=== PATIENT | female | born 1985 | race Caucasian/White ===

== ENCOUNTER 2020-03-30 23:30 | Emergency (ER) | payer OTHER, SELFPAY ==
[2020-03-30 23:45] VITALS: BP 135/82; PULSE 116; RESP 16; TEMP 36.4; O2SAT 99; BMI 26.5
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
[2020-03-31 00:28] LABS: MANUAL DIFF FLAG NO
[2020-03-31 00:31] LABS: Basophils Absolute Auto 0.1 X10*3/uL (0.0-0.2); Basophils Percent Auto 0.6 % (0-2); Eosinophils Absolute Auto 1.1 X10*3/uL (0.0-0.4); Eosinophils Percent Auto 7.9 % (0-4); Hematocrit 39.6 % (37-47); Hemoglobin 13.2 g/dl (12.0-16.0); Imm Gran Abs Auto 0.07 X10*3/uL (0.00-0.03); Imm Gran Pct Auto 0.5 % (0.0-0.4); Lymphocytes Absolute Auto 1.8 X10*3/uL (1.2-4.9); Lymphocytes Percent Auto 13.2 % (20-40); Mean Corpuscular HGB Conc 33.3 g/dl (31.0-35.0); Mean Corpuscular Volume 95.9 fL (80-98); Monocytes Absolute Auto 1.2 X10*3/uL (0.1-1.2); Monocytes Percent Auto 8.6 % (2-11); Neutrophils Absolute Auto 9.3 X10*3/uL (2.0-8.3); Neutrophils Percent Auto 69.2 % (45-73); Platelet Count 391 X10*3/uL (160-400); Red Blood Count 4.13 X10*6/uL (4.20-5.50); White Blood Count 13.5 X10*3/uL (4.8-10.8)
[2020-03-31 00:53] LABS: Ethanol < 10 mg/dL
[2020-03-31 00:54] LABS: Alanine Aminotransferase 11 U/L (0-31); Albumin Level 4.1 g/dL (3.5-5.0); Alkaline Phosphatase 79 U/L (39-117); Anion Gap 14 (12-20); Aspartate Amino Transferase 15 U/L (5-31); Bilirubin Total 0.6 mg/dL (0.0-1.0); Blood Urea Nitrogen 12 mg/dL (9-16); Calcium 8.8 mg/dL (8.4-10.2); Carbon Dioxide 26 mmol/L (22-29); Chloride 104 mmol/L (96-108); Estimated Glomerular Filt Rate > 60; Glucose Random 123 mg/dL (60-115); Potassium 3.6 mmol/L (3.3-5.1); Sodium 140 mmol/L (135-145); Total Protein 7.1 g/dL (6.5-8.0)
--- NOTE | 2020-03-31 01:17 | PC.NURSE ---
[facility] faxed/called/spoke with [facility]/confirmed receipt of referral.
--- NOTE | 2020-03-31 01:23 | PC.NURSE ---
Medication reconciliation completed, provider notified, pending MAR update.
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
[2020-03-31] MEDS: clonazePAM 1 MG TABLET PO (01:36)
--- NOTE | 2020-03-31 01:50 | PC.NURSE ---
Patient compliant with her scheduled medication, no distress reported, will continue to monitor.
[2020-03-31 03:40] LABS: COVID-19 Test Negative (Negative)
--- NOTE | 2020-03-31 03:43 | PC.NURSE ---
POLAN completed the assessment, disposition discharge home, provider and patient aware.
[2020-03-31] MEDS: Ibuprofen 600 MG TABLET PO (04:01)
== END 2020-03-31 06:37 | disposition home or self-care (01) ==
PROVIDERS: Emergency Provider Student in an Organized Health Care Education/Training Program
DX: F41.9 Anxiety disorder, unspecified (principal); F43.10 Post-traumatic stress disorder, unspecified; Z20.822 Contact with and (suspected) exposure to COVID-19; F17.200 Nicotine dependence, unspecified, uncomplicated; Z79.899 Other long term (current) drug therapy
CPT/HCPCS: 36415; 80053; 80320; 85025; 87635; 99283; 99284